=== PATIENT | female | born 1970 | race Caucasian/White ===

== ENCOUNTER → 2017-07-07 10:02 | Outpatient (CLI) | payer MEDICAID ==
[2017-07-07 10:40] LABS: HEMATOCRIT 39.3 % (36.0-48.0); HEMOGLOBIN 12.9 g/dL (12-16); LYMPHOCYTES 24.6 % (15-50); MCH 27.4 pg (26.0-34.0); MCHC 32.8 g/dL (31.0-37.0); MCV 83.6 fL (80.0-100.0); MEAN PLATELET VOLUME 9.8 fL (7.4-10.4); NEUTROPHILS 66.9 % (40-80); PLATELET COUNT 178 10x3/uL (130-400); RDW 15.5 % (11.5-14.5); WBC 7.3 10x3/uL (4.8-10.8)
== END | disposition home or self-care (01) ==
LOC: D.LAB 10:02
PROVIDERS: Internal Medicine Gastroenterology
DX: D64.9 Anemia, unspecified (principal); R13.10 Dysphagia, unspecified; R10.84 Generalized abdominal pain

== ENCOUNTER 2017-07-27 06:05 | Day surgery (SDC) | payer MEDICAID ==
[~2017-07-27] VITALS: Ht 162.6 cm; Wt 140.0 kg
--- NOTE | ~2017-07-27 | OP ---
PATIENT NAME: JUSTUS RUIZ MEDICAL RECORD: [id number] :68 LOCATION:[facility] ADMISSION DATE: SURGEON: JOSE LUIS RECIO DO DATE OF OPERATION: 07/27/2017 PROCEDURE: Colonoscopy with polypectomy. INDICATIONS FOR PROCEDURE: Anemia and generalized abdominal pain. SCOPE: Olympus video pediatric colonoscope. MEDICATIONS: Propofol 750 mg IV per anesthesia. WITHDRAWAL TIME: 20 minutes. ESTIMATED BLOOD LOSS: Minimal. COMPLICATIONS: None. FINDINGS: Informed consent was given. The patient was made comfortable with the above medication. After reaching an adequate level of sedation by slow IV push, the patient was placed on her left side. A digital rectal examination was performed and was normal. The endoscope was then advanced under direct visualization through the rectum to the cecum, confirmed by the presence of the appendiceal orifice and ileocecal valve. The endoscope was slowly withdrawn and mucosa was carefully examined. The prep quality was fair. A fair amount of time was spent irrigating and aspirating fluid and stool from the colon for better visualization. There were 4 polyps visualized on today's examination. They were all benign appearing and ranged in size from 3-5 mm in diameter. They were all removed using hot forceps in 1 piece and completely retrieved. Three of these polyps were located in the sigmoid colon and the other polyp was located in the proximal descending colon. Retroflexion was performed in the rectum with visualization of grade I internal hemorrhoids without bleeding. There were no other abnormalities on today's examination. The endoscope was withdrawn from the patient. The patient tolerated the procedure well and there were no complications. IMPRESSION: 1. Three polyps located in the sigmoid colon and 1 polyp located in the descending colon. All were removed using hot forceps. 2. Grade I internal hemorrhoids without bleeding. PLAN AND RECOMMENDATIONS: 1. Discharge home when recovery parameters are met. 2. Follow up biopsy specimen results. 3. High fiber diet. 4. Continue current medications. 5. Recall colonoscopy in 3-5 years. TRANSINT:[id number] Voice Confirmation ID: [id number] DOCUMENT ID: [id number] OPERATIVE REPORT [id number] JUSTUS RUIZ JOSE LUIS RECIO DO at 1212 CC: [id number] DICTATION DATE: 07/27/17 09 HEAD CHAR FILTER TANK TENDER: 07/27/17 1315 [facility] 07/27/17 [facility] [address] [place] [address]
[2017-07-27 06:22] LABS: BASOPHILS 0.2 % (0-2); EOSINOPHILS 1.8 % (0-7); HEMATOCRIT 43.2 % (36.0-48.0); HEMOGLOBIN 14.2 g/dL (12-16); IMMATURE GRANULOCYTES 0.5 % (0-5); LYMPHOCYTES 22.9 % (15-50); MCH 28.7 pg (26.0-34.0); MCHC 32.9 g/dL (31.0-37.0); MCV 87.4 fL (80.0-100.0); MEAN PLATELET VOLUME 9.9 fL (7.4-10.4); NEUTROPHILS 65.6 % (40-80); PLATELET COUNT 202 10x3/uL (130-400); RBC 4.94 10x6/uL (4.00-5.40); RDW 14.8 % (11.5-14.5); WBC 9.2 10x3/uL (4.8-10.8)
[2017-07-27 06:38] LABS: ANION GAP 9.5 mmol/L (8-16); CALCIUM 9.2 mg/dL (8.5-10.1); CARBON DIOXIDE 31.7 mmol/L (21.0-32.0); CREATININE - SERUM 0.9 mg/dL (0.6-1.3); POTASSIUM - SERUM 4.2 mmol/L (3.5-5.1)
[2017-07-27] MEDS ORDERED: PRINIVIL20 MG PO (07:10)
[2017-07-27] MEDS ORDERED: CELEXA20 MG PO (07:10)
[2017-07-27] MEDS ORDERED: VOLTAREN75 MG PO (07:10)
[2017-07-27] MEDS ORDERED: FERROUS SULFAT325 MG PO (07:11)
[2017-07-27] MEDS ORDERED: PROAIR HFA8.5 GM INH (07:13)
[2017-07-27] MEDS ORDERED: PLAVIX75 MG PO (07:13)
[2017-07-27] MEDS ORDERED: ZOFRAN ODT4 MG/UDTAB PO (07:13)
[2017-07-27 07:23] VITALS: BP 151/65; Ht 162.6 cm; Wt 140.0 kg
== END 2017-07-27 10:25 | disposition home or self-care (01) ==
LOC: D.OPS 06:05
PROVIDERS: Anesthesiology
DX: K63.5 Polyp of colon (principal); K64.0 First degree hemorrhoids; D64.9 Anemia, unspecified; Z01.812 Encounter for preprocedural laboratory examination

== ENCOUNTER 2017-08-03 05:40 | Day surgery (SDC) | payer MEDICAID ==
[~2017-08-03] VITALS: Ht 162.6 cm; Wt 140.9 kg
--- NOTE | ~2017-08-03 | OP ---
PATIENT NAME: JUSTUS RUIZ MEDICAL RECORD: [id number] :68 [facility] DATE: SURGEON: JOSE LUIS RECIO DO DATE OF OPERATION: 08/03/2017 PROCEDURE: EGD with biopsies. INDICATIONS FOR PROCEDURE: Dysphagia, anemia, generalized abdominal pain. SCOPE: Olympus video gastroscope. MEDICATIONS: Propofol 200 mg IV per anesthesia. ESTIMATED BLOOD LOSS: Minimal. COMPLICATIONS: None. FINDINGS: Informed consent was given. The patient was made comfortable with the above medication. After reaching an adequate level of sedation by slow IV push, the patient was placed in the left side. The endoscope was advanced under direct visualization through the mouth to the second portion of the duodenum. The upper, middle, and lower thirds of the esophagus appeared normal. Random biopsies were taken in the mid esophagus to rule out the presence of eosinophils based on her history of dysphagia, in light of a normal appearance under endoscopy without strictures or rings visualized. At the GE junction, there was some evidence of LA class B reflux-induced esophagitis with a single ulceration at the distal esophagus. There was no active bleeding or stigmata of bleeding. The endoscope was advanced beyond the GE junction into the stomach and retroflexed to view the cardia, where a very small sliding type hiatal hernia was present. The mucosa of the fundus, body, antrum, and prepyloric regions of the stomach appeared normal. Random biopsies were taken to submit for histology and to rule out the presence of H. pylori. The endoscope was advanced beyond the pylorus into the duodenum where the bulb, first portion, and second portion of the duodenum appeared normal. Random biopsies were also taken here based on the patient's symptoms. The endoscope was then withdrawn from the patient. The patient tolerated the procedure well and there were no complications. IMPRESSIONS: 1. LA class B reflux-induced esophagitis. 2. Small sliding hiatal hernia. 3. Random biopsies taken in mid esophagus, stomach, and duodenum. PLAN AND RECOMMENDATIONS: 1. Discharge home when recovery parameters are met. 2. Follow up biopsy specimen results. 3. GERD diet and reflux precautions. 4. Continue current medications. 5. Add Pepcid 40 mg daily times 60 days. 6. Notify the GI clinic if symptoms worsen or fail to improve. 7. The patient's hemoglobin checked today was greater than 13, indicating a normal hemoglobin level. If indicated, I recommend continuing iron supplementation. TRANSINT:[id number] Voice Confirmation ID: [id number] DOCUMENT ID: [id number] OPERATIVE REPORT [id number] JUSTUS RUIZ NATHAN A DO at 1531 CC: [id number] DICTATION DATE: 08/03/17817 SOFT SUGAR CUTTER: 08/03/17 1238 [facility] 08/03/[address] [id number]
[~2017-08-03 05:40] MED LIST: CELEXA20 MG PO; FERROUS SULFAT325 MG PO; PLAVIX75 MG PO; PRINIVIL20 MG PO; PROAIR HFA8.5 GM INH; VOLTAREN75 MG PO; ZOFRAN ODT4 MG/UDTAB PO
[2017-08-03 06:03] LABS: HEMATOCRIT 40.4 % (36.0-48.0); HEMOGLOBIN 13.2 g/dL (12-16); MCH 28.8 pg (26.0-34.0); MCHC 32.7 g/dL (31.0-37.0); MCV 88.2 fL (80.0-100.0); MEAN PLATELET VOLUME 9.9 fL (7.4-10.4); RBC 4.58 10x6/uL (4.00-5.40); RDW 14.6 % (11.5-14.5); WBC 8.9 10x3/uL (4.8-10.8)
[2017-08-03 06:19] LABS: CALC OSMOLALITY 286 mosm/kg (275-300); CALCIUM 8.8 mg/dL (8.5-10.1); CARBON DIOXIDE 29.7 mmol/L (21.0-32.0); CHLORIDE - SERUM 105 mmol/L (98-107); CREATININE - SERUM 0.8 mg/dL (0.6-1.3); GLUCOSE 124 mg/dL (74-106); POTASSIUM - SERUM 4.8 mmol/L (3.5-5.1); SODIUM 143 mmol/L (136-145); UREA NITROGEN 16 mg/dL (7-18); eGFR NON AFRICAN AMERICAN 81 mL/min (90-120)
[2017-08-03 06:21] VITALS: BP 132/70; Ht 162.6 cm; Wt 140.9 kg
== END 2017-08-03 09:30 | disposition home or self-care (01) ==
LOC: D.OPS 05:40
PROVIDERS: Anesthesiology
DX: R13.10 Dysphagia, unspecified (principal); D64.9 Anemia, unspecified; R10.84 Generalized abdominal pain; J45.909 Unspecified asthma, uncomplicated; I10 Essential (primary) hypertension; E11.9 Type 2 diabetes mellitus without complications; E66.01 Morbid (severe) obesity due to excess calories; Z68.43 Body mass index [BMI] 50.0-59.9, adult; Z01.812 Encounter for preprocedural laboratory examination